=== PATIENT | female | born 1945 | race Caucasian/White ===

== ENCOUNTER → 2016-06-01 | Outpatient (CLI) | payer BC ==
[~2016-06-01] MED LIST: ADULT LOW DOSE81 MG PO; APIDRA100 UNIT/1 SUBCUT; CALTRATE 600 WI1 TAB PO; COZAAR100 MG PO; GLUCOPHAGE500 MG PO; HYDROCHLOROTH12.5 MG PO; LANTUS100 UNIT/1 SUBCUT; LOPRESSOR100 MG PO; PRILOSEC20 MG PO; VITAMIN D31000 UNI1 PO; ZOCOR40 MG PO
== END | disposition short-term general hospital (02) ==
LOC: CLORTH 12:24
DX: S46.011D Strain of muscle(s) and tendon(s) of the rotator cuff of right shoulder, subsequent encounter (principal); S43.431D Superior glenoid labrum lesion of right shoulder, subsequent encounter

== ENCOUNTER → 2016-07-13 | Outpatient (CLI) | payer BC, MEDICARE | END | disposition short-term general hospital (02) | LOC: CLORTH 02:34 | DX: S46.011D Strain of muscle(s) and tendon(s) of the rotator cuff of right shoulder, subsequent encounter (principal); S43.431D Superior glenoid labrum lesion of right shoulder, subsequent encounter ==

== ENCOUNTER → 2016-08-24 | Outpatient (CLI) | payer BC, MEDICARE | END | disposition short-term general hospital (02) | LOC: CLORTH 02:26 | DX: S43.421D Sprain of right rotator cuff capsule, subsequent encounter (principal) ==